=== PATIENT | male | born 1985 | race Two or more races ===

== ENCOUNTER 2023-12-23 02:32 | Inpatient (IN) | payer MEDICAID, OTHER ==
[~2023-12-23] VITALS: Ht 188 cm; Wt 146.4 kg
[2023-12-23 03:04] LABS: Basophils # (auto) 0 10 ^3/uL (0-0.2); Basophils % (auto) 0.5 % (0.0-2.0); Eosinophils # (auto) 0.1 10 ^3/uL (0-0.8); Eosinophils % (auto) 1.6 % (0.0-7.0); Hematocrit 47.3 % (41.0-53.0); Hemoglobin 16.7 g/dL (13.5-17.5); Lymphocytes # (auto) 2.3 10 ^3/uL (0.4-5.4); Lymphocytes % (auto) 47.5 % (10.0-50.0); Mean Corpuscular Hemoglobin 36.9 pg (28.0-32.0); Mean Corpuscular Hgb Conc. 35.2 g/dL (32.0-36.0); Mean Corpuscular Volume 104.7 fL (80.0-100.0); Monocytes # (auto) 0.3 10 ^3/uL (0-1.3); Monocytes % (auto) 6.5 % (0.0-12.0); Neutrophils # (auto) 2.1 10 ^3/uL (1.6-8.6); Neutrophils % (auto) 43.9 % (37.0-80.0); Nucleated Red Blood Cells % 0.4 %; Red Blood Cells 4.52 10^6/uL (4.5-5.90); Red Cell Distribution Width 14.7 % (11.8-14.3); White Blood Cell 4.9 10^3/uL (4.4-10.8)
[2023-12-23 03:07] LABS: Alanine Aminotransferase 37 U/L (7-40); Alkaline Phosphatase 78 U/L (46-116); Anion Gap 5 (5-15); Aspartate Aminotransferase 30 U/L (13-40); BUN/Creatinine Ratio 8.9 (10.0-20.0); Blood Urea Nitrogen 10 mg/dL (9-23); Calcium 9.6 mg/dL (8.7-10.4); Carbon Dioxide 28 mmol/L (20-30); Chloride 109 mmol/L (98-107); Glucose 91 mg/dL (74-106); INR 1.07 (0.9-1.15); Magnesium 2.1 mg/dL (1.6-2.6); Partial Thromboplastin Time 23.3 SEC (24.5-34.5); Potassium 3.7 mmol/L (3.5-5.1); Prothrombin Time 11.3 sec (9.3-11.8); Sodium 142 mmol/L (136-145)
[2023-12-23 03:08] LABS: Albumin 4.3 g/dL (3.2-4.8); Bilirubin, Total 0.6 mg/dL (0.2-1.0); Total Protein 8.5 g/dL (5.7-8.2)
[2023-12-23] MEDS: ASPirin 81 mg TAB PO ONE (06:03)
[2023-12-23] MEDS: IOHEXOL 350 MG/ML 100ML IJ ONE (06:16)
[2023-12-23 07:20] VITALS: PULSE 60; RESP 18; O2SAT 96
[2023-12-23] MEDS ORDERED: ONDANSETRON HCL 4 MG/2 ML VIAL IV PRN (07:30)
[2023-12-23] MEDS ORDERED: ACETAMINOPHEN 325 MG TAB PO PRN (07:30)
[2023-12-23] MEDS ORDERED: NITROGLYCERIN 0.4 MG SL TAB SL PRN (07:30)
[2023-12-23] MEDS ORDERED: MORPHINE SULFATE INJ 2 MG/ml SYRG IV PRN (07:30)
[2023-12-23 08:11] LABS: Triglycerides 297 mg/dL (< 150)
[2023-12-23 08:12] LABS: LDL Cholesterol 100 mg/dL (< 100)
[2023-12-23 08:13] LABS: Cholesterol 185 mg/dL (< 200); HDL Cholesterol 42 mg/dL (40-59)
[2023-12-23] MEDS: HYDROmorphone HCL 2 MG/ML VL/or syr IV ONE (08:40)
[2023-12-23] MEDS: ASPirin 81 mg TAB PO SCH (10:18)
[2023-12-23 13:30] VITALS: PULSE 84; RESP 18
[2023-12-23 15:10] LABS: Hepatitis B Surface Antigen Negative (Negative)
[2023-12-23 15:31] LABS: Hepatitis C Antibody Negative (Negative)
[2023-12-23 17:00] VITALS: BP 131/72; PULSE 76; RESP 18; TEMP 97.9; O2SAT 97
[2023-12-23] MEDS: RIVAROXABAN 20 MG TAB PO SCH (18:00)
[2023-12-23 19:30] VITALS: PULSE 69
[2023-12-23 20:15] LABS: Triglycerides 152 mg/dL (< 150)
[2023-12-23 20:16] LABS: Cholesterol 178 mg/dL (< 200); LDL Cholesterol 104 mg/dL (< 100)
[2023-12-23 20:17] LABS: HDL Cholesterol 44 mg/dL (40-59)
[2023-12-23 21:00] VITALS: BP 125/74; PULSE 77; RESP 18; TEMP 97.8; O2SAT 96
[2023-12-23] MEDS: RIVAROXABAN 15 MG TAB PO SCH (21:21)
[2023-12-23] MEDS: ATORVASTATIN 20 MG TAB PO SCH (21:22)
[2023-12-24 05:00] VITALS: BP 127/88; PULSE 67; RESP 18; TEMP 97.9; O2SAT 97
[2023-12-24 05:54] LABS: Chloride 107 mmol/L (98-107); Potassium 3.3 mmol/L (3.5-5.1); Sodium 139 mmol/L (136-145)
[2023-12-24 05:55] LABS: Anion Gap 5 (5-15); Carbon Dioxide 27 mmol/L (20-30)
[2023-12-24 05:56] LABS: Calcium 10.1 mg/dL (8.7-10.4)
[2023-12-24 06:01] LABS: BUN/Creatinine Ratio 9.9 (10.0-20.0); Blood Urea Nitrogen 9 mg/dL (9-23); Glucose 95 mg/dL (74-106)
[2023-12-24 08:00] VITALS: PULSE 70
[2023-12-24 09:00] VITALS: BP 139/93; PULSE 71; RESP 17; TEMP 97.9; O2SAT 97
[2023-12-24] MEDS ORDERED: RIV20T PO (10:22)
[2023-12-24] MEDS ORDERED: RIV15T PO (10:22)
[2023-12-24 13:00] VITALS: BP 122/76; PULSE 66; RESP 18; TEMP 98; O2SAT 98
[2023-12-24] MEDS: HYDROcodone-ACET 5/325MG TAB PO ONE (14:15)
[2024-01-14] MEDS ORDERED: RIVAROXABAN 20 MG TAB PO SCH (18:00)
== END 2023-12-24 16:20 | disposition home or self-care (01) | DRG 203 ==
LOC: ER 02:32 → TELE 07:26 → TELE-E-ADS 13:18
PROVIDERS: ADMIT Nurse Practitioner; ATTEND Nurse Practitioner Acute Care
DX: M94.0 Chondrocostal junction syndrome [Tietze] (principal); I82.412 Acute embolism and thrombosis of left femoral vein; I20.0 Unstable angina; E66.01 Morbid (severe) obesity due to excess calories; E78.5 Hyperlipidemia, unspecified; J45.909 Unspecified asthma, uncomplicated; F17.210 Nicotine dependence, cigarettes, uncomplicated; F19.10 Other psychoactive substance abuse, uncomplicated; Z88.0 Allergy status to penicillin; Z88.5 Allergy status to narcotic agent; Z68.41 Body mass index [BMI] 40.0-44.9, adult; Z82.49 Family history of ischemic heart disease and other diseases of the circulatory system; Z82.5 Family history of asthma and other chronic lower respiratory diseases
CPT/HCPCS: 36415; 71045; 71275; 80048; 80053; 80061; 83036; 83735; 83880; 84484; 85025; 85379; 85610; 85730; 86803; 87340; 93005; 93306; 93970; 96374; G0378